=== PATIENT | female | born 1985 | race Caucasian/White ===

== ENCOUNTER 2017-09-22 23:11 | Emergency (ER) | payer BC ==
[~2017-09-22] VITALS: Ht 165.1 cm; Wt 86.2 kg
[2017-09-22 23:14] VITALS: BP_SYST 112
--- NOTE | 2017-09-22 23:14 | NUR ---
Patient to ER bed 6 to gown for evaluation. Side rails up. Report given to MARCOS Carballo.
--- NOTE | 2017-09-22 23:15 | NUR ---
Patient to ER via EMT ambulance with c/o epigastric pain, patient medicated with Louise-seltzer and Gas-X at home without relief. Patient is awake, alert and oriented in no acute distress, vital signs stable, respirations even and unlabored, skin warm and dry to touch. Awaiting evaluation by ER MD, will continue to observe and assess.
--- NOTE | 2017-09-22 23:18 | NUR ---
Dr Rose at bedside to evaluate patient.
--- NOTE | 2017-09-22 23:25 | NUR ---
Patient to bathroom to provide urine sample, which was obtained and sent to lab.
[2017-09-22] MEDS ORDERED: MAG HYDROX/AL HYDROX/SIMETH 30 ML, BELLADONNA ALKALOIDS/PHENOBARB 10 ML, LIDOCAINE VISC... PO ONE ×3 (23:30)
--- NOTE | 2017-09-22 23:40 | NUR ---
Patient to radiology for films in stable condition, able to ambulate without difficulty with slow, steady gait.
[2017-09-22 23:44] LABS: CALCIUM 8.8 mg/dL (8.4-11.0); CREATININE 0.81 mg/dL (0.55-1.30); POTASSIUM 3.4 mmol/L (3.5-5.1)
[2017-09-22 23:45] LABS: BILIRUBIN,URINE NEGATIVE (NEGATIVE); BLOOD, URINE 2+ (NEGATIVE); CLARITY/URINE CLEAR (CLEAR); COLOR,URINE YELLOW (YELLOW); GLUCOSE,URINE NEGATIVE (NEGATIVE); KETONES,URINE TRACE (NEGATIVE); LEUKOCYTE ESTERASE ,URINE NEGATIVE (NEGATIVE); NITRITE, URINE NEGATIVE (NEGATIVE); PROTEIN URINE NEGATIVE (NEGATIVE)
[2017-09-22 23:49] LABS: ALBUMIN 3.5 g/dL (3.4-4.8); TOTAL BILIRUBIN 0.5 mg/dL (0.0-1.0)
--- NOTE | 2017-09-22 23:50 | NUR ---
Patient returned from radiology in stable condition.
[2017-09-22 23:53] LABS: BASOPHILS # (AUTO) 0.1 K/uL (0.0-0.2); BASOPHILS % (AUTO) 1.1 % (0.0-2.0); EOSINOPHILS # (AUTO) 0.2 K/uL (0.0-0.4); EOSINOPHILS % (AUTO) 2.3 % (0.0-4.0); HEMATOCRIT 40.5 % (36-48); HEMOGLOBIN 13.8 g/dL (12.0-16.0); LYMPHOCYTES # (AUTO) 2.7 K/uL (1.0-5.5); MEAN CORPUSCULAR HEMOGLOBIN 32 pg (27-31); MEAN CORPUSCULAR HGB CONC 34 % (32-36); MEAN CORPUSCULAR VOLUME 95 fL (79.0-98.0); MONOCYTES # (AUTO) 0.5 K/uL (0.0-1.0); MONOCYTES % (AUTO) 7.5 % (1.7-9.3); NEUTROPHILS # (AUTO) 3.7 K/uL (1.8-7.7); NEUTROPHILS % (AUTO) 51.1 % (40.0-70.0); PLATELET COUNT (AUTO) 286 K/uL (130-430); RED BLOOD CELL COUNT(AUTO) 4.28 MIL/uL (4.2-6.2); RED CELL DISTRIBUTION WIDTH 11.7 % (9.0-15.0); WHITE BLOOD COUNT (AUTO) 7.2 K/uL (4.8-10.8)
[2017-09-23] MEDS ORDERED: LACTULOSE 20 GM/30 ML UDC PO ONE
--- NOTE | 2017-09-23 00:20 | NUR ---
Dr Rose at bedside speaking with patient/family regarding results and plan of care, questions answered by Dr Rose.
[2017-09-23 00:29] LABS: BACTERIA,URINE FEW /HPF (None Seen); WBC,URINE 0-3 /HPF (0-3)
[2017-09-23 00:45] VITALS: BP_SYST 92
--- NOTE | 2017-09-23 00:45 | NUR ---
Patient given written and verbal discharge instructions and verbalizes understanding. ER MD discussed with patient the results and treatment provided. Patient in stable condition. ID arm band removed. IV catheter removed intact and dressing applied, no active bleeding. Rx of MiraLax given. Patient educated on pain management and to follow up with PMD. Pain Scale 0. Opportunity for questions provided and answered. Medication side effect fact sheet provided. Patient left ER ambulating without difficulty with slow, steady gait in no acute distress, with family at her side. No adverse reaction noted to medication.
== END 2017-09-23 00:45 | disposition home or self-care (01) ==
LOC: SED 23:11
DX: K59.00 Constipation, unspecified (principal)
CPT/HCPCS: 36415; 74018; 80053; 81000; 81025; 83690; 85025; 99285; J2001